=== PATIENT | female | born 1985 | race African-American/Black ===

== ENCOUNTER 2019-03-08 10:33 | Emergency (ER) | payer OTHER ==
[~2019-03-08] VITALS: Ht 144.8 cm; Wt 68.0 kg
[~2019-03-08 10:33] MED LIST: NKM
[2019-03-08 10:51] VITALS: BP 141/100
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
[2019-03-08 11:33] VITALS: BP 141/100
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
== END 2019-03-08 11:30 ==
LOC: EDBD 10:33 → EMR 11:00
DX: S09.90XA Unspecified injury of head, initial encounter (principal); Y04.2XXA Assault by strike against or bumped into by another person, initial encounter
CPT/HCPCS: 99282